=== PATIENT | male | born 2000 | race Caucasian/White ===

== ENCOUNTER 2021-01-24 07:27 | Day surgery (SDC) | payer OTHER ==
[~2021-01-24] VITALS: Ht 182.9 cm; Wt 82.5 kg
[2021-01-24 08:46] VITALS: BP 103/65; PULSE 69; TEMP 98.8
[2021-01-24] MEDS ORDERED: PROZAC 20MG20 MG PO (08:51)
[2021-01-24 09:55] VITALS: BP 99/62; PULSE 75; TEMP 97.6
--- NOTE | 2021-01-24 09:55 | NUR ---
Pt to [facility] via cart from ENDO. Pt awake and alert. Denies pain or nausea. Pt ambulates to recliner with stand by assist. Warm blanket provided. Muffin and water given per pt request. Call light within reach. Fiance in room.
[2021-01-24 10:10] VITALS: BP 92/65; PULSE 79
--- NOTE | 2021-01-24 10:10 | NUR ---
Pt continues to rest. Tolerating po food and fluids without nausea. Denies needs. Call light within reach.
[2021-01-24 10:25] VITALS: BP 100/63; PULSE 68
--- NOTE | 2021-01-24 10:25 | NUR ---
Discharge instructions reviewed. Pt voices understanding. IV site discontinued with all parts intact. Pt up to dress. Call light within reach.
--- NOTE | 2021-01-24 10:35 | NUR ---
Pt escorted to private car via wheel chair. Pt accompanied home by his fiance.
== END 2021-01-24 10:35 | disposition home or self-care (01) ==
LOC: SDCO 07:27
DX: K29.80 Duodenitis without bleeding (principal); K50.80 Crohn's disease of both small and large intestine without complications; K29.30 Chronic superficial gastritis without bleeding; K60.0 Acute anal fissure; K52.9 Noninfective gastroenteritis and colitis, unspecified; K22.10 Ulcer of esophagus without bleeding; F41.9 Anxiety disorder, unspecified; Z20.822 Contact with and (suspected) exposure to COVID-19; Z79.52 Long term (current) use of systemic steroids; Z79.899 Other long term (current) drug therapy
CPT/HCPCS: J2704; J7120

== ENCOUNTER 2021-04-19 14:52 | Outpatient (CLI) | payer OTHER ==
[~2021-04-19] VITALS: Ht 182.9 cm; Wt 85.2 kg
[~2021-04-19 14:52] MED LIST: PROZAC 20MG20 MG PO
[2021-04-19 16:24] LABS: HEMATOCRIT 41.3 % (42.0-52.0); MEAN CELL VOLUME 81 fl (80.0-100.0); MEAN CORPUSCULAR HEMOGLOBIN 26 pg (27.0-31.0); MEAN CORPUSCULAR HGB CONC 32 g/dl (33.0-37.0); MEAN PLATELET VOLUME 8.8 fl (7.4-10.4); PLATELET COUNT 297 K/mm3 (130-400); RED BLOOD COUNT 5.08 M/mm3 (4.20-5.60); REDCELL DISTRIBUTION WIDTH-CV 15.4 % (11.5-14.5)
[2021-04-19 16:30] VITALS: BP 104/63; PULSE 76; TEMP 98.8
[2021-04-19 16:30] LABS: ALBUMIN 3.9 gm/dL (3.5-5.0); BILIRUBIN,TOTAL 0.3 mg/dL (0.0-1.0); C-REACTIVE PROTEIN 3.3 mg/dL (0.0-0.9); CALCIUM 8.8 mg/dL (8.4-10.2); CREATININE, serum 0.78 (0.66-1.25); POTASSIUM 3.8 mmol/L (3.4-5.0); TOTAL PROTEIN 7.5 gm/dL (6.4-8.2)
[2021-04-19] MEDS ORDERED: REMICADE V100 MG/VIA IV (16:41)
[2021-04-19 17:00] VITALS: BP 117/69; PULSE 88; TEMP 98.8
[2021-04-19 17:30] VITALS: BP 99/55; PULSE 77; TEMP 98.8
[2021-04-19 18:00] VITALS: BP 89/47; PULSE 80; TEMP 98.8
[2021-04-19 18:36] VITALS: BP 92/56; PULSE 75; TEMP 98.8
== END 2021-04-19 18:36 | disposition home or self-care (01) ==
LOC: EUO 14:52
PROVIDERS: Internal Medicine Gastroenterology
DX: K50.80 Crohn's disease of both small and large intestine without complications (principal)
CPT/HCPCS: J1200; J1745; J7050

== ENCOUNTER 2021-06-26 13:48 | Outpatient (CLI) | payer OTHER ==
[~2021-06-26] VITALS: Ht 182.9 cm; Wt 90.3 kg
[2021-06-26] VITALS (7 sets, daily range): BP systolic 97–110; BP diastolic 51–71; PULSE 66–81; TEMP 98.1–98.5
[~2021-06-26 13:48] MED LIST changes: +REMICADE V100 MG/VIA IV
[2021-06-26 14:17] LABS: HEMATOCRIT 40.2 % (42.0-52.0); HEMOGLOBIN 13.4 g/dl (13.5-18.0); MEAN CELL VOLUME 83 fl (80.0-100.0); MEAN CORPUSCULAR HEMOGLOBIN 28 pg (27.0-31.0); MEAN CORPUSCULAR HGB CONC 33 g/dl (33.0-37.0); MEAN PLATELET VOLUME 9.6 fl (7.4-10.4); PLATELET COUNT 281 K/mm3 (130-400); RED BLOOD COUNT 4.87 M/mm3 (4.20-5.60); REDCELL DISTRIBUTION WIDTH-CV 14.7 % (11.5-14.5)
[2021-06-26 14:38] LABS: ALBUMIN 4.2 gm/dL (3.5-5.0); BILIRUBIN,TOTAL 0.6 mg/dL (0.2-1.2); CALCIUM 9.6 mg/dL (8.4-10.2); CREATININE, serum 0.95 mg/dL (0.72-1.25); POTASSIUM 3.5 mmol/L (3.5-4.5); TOTAL PROTEIN 7.6 gm/dL (6.2-8.1)
== END 2021-06-26 17:22 | disposition home or self-care (01) ==
LOC: EUO 13:48
PROVIDERS: Internal Medicine Gastroenterology
DX: K50.80 Crohn's disease of both small and large intestine without complications (principal)
CPT/HCPCS: J1200; J2930; J7050; Q5103

== ENCOUNTER 2021-08-28 13:52 | Outpatient (CLI) | payer OTHER ==
[~2021-08-28] VITALS: Ht 182.9 cm; Wt 96.1 kg
[2021-08-28 14:41] LABS: HEMATOCRIT 41.1 % (42.0-52.0); HEMOGLOBIN 14.1 g/dl (13.5-18.0); MEAN CELL VOLUME 82 fl (80.0-100.0); MEAN CORPUSCULAR HEMOGLOBIN 28 pg (27-31); MEAN CORPUSCULAR HGB CONC 34 g/dl (33.0-37.0); PLATELET COUNT 251 K/mm3 (130-400); REDCELL DISTRIBUTION WIDTH-CV 11.8 % (11.5-14.5)
[2021-08-28 15:06] LABS: ALBUMIN 4.3 gm/dL (3.5-5.0); BILIRUBIN,TOTAL 0.6 mg/dL (0.2-1.2); CALCIUM 9.2 mg/dL (8.4-10.2); CREATININE, serum 1.04 mg/dL (0.72-1.25); POTASSIUM 4.1 mmol/L (3.5-4.5); TOTAL PROTEIN 7.6 gm/dL (6.2-8.1)
[2021-08-28 15:33] VITALS: BP 109/68; PULSE 70; TEMP 98.4
[2021-08-28 15:47] VITALS: BP 98/63; PULSE 61
[2021-08-28 16:02] VITALS: BP 109/68; PULSE 66
[2021-08-28 16:30] VITALS: BP 106/70; PULSE 66
[2021-08-28 17:00] VITALS: BP 99/53; PULSE 77
[2021-08-28 17:18] VITALS: BP 102/52; PULSE 71; TEMP 98.2
== END 2021-08-28 19:45 | disposition home or self-care (01) ==
LOC: EUO 13:52
PROVIDERS: Internal Medicine Gastroenterology
DX: K50.80 Crohn's disease of both small and large intestine without complications (principal)
CPT/HCPCS: J1200; J2920; J7050; Q5103

== ENCOUNTER 2021-10-23 13:51 | Outpatient (CLI) | payer OTHER ==
[~2021-10-23] VITALS: Ht 182.9 cm; Wt 94.1 kg
[2021-10-23 14:20] LABS: BASO % 0.3 % (0.0-2.0); EOS # 0.1 K/mm3 (0.0-0.7); EOS % 0.6 % (0.0-4.0); GRAN # 5.4 K/mm3 (1.4-6.5); GRAN % 69.2 % (42.2-75.2); HEMATOCRIT 40.6 % (42.0-52.0); HEMOGLOBIN 14.1 g/dl (13.5-18.0); LYMPH # 1.7 K/mm3 (1.2-3.4); MEAN CELL VOLUME 82 fl (80.0-100.0); MEAN CORPUSCULAR HEMOGLOBIN 29 pg (27-31); MEAN CORPUSCULAR HGB CONC 35 g/dl (33.0-37.0); MONO # 0.6 K/mm3 (0.1-0.6); MONO % 7.6 % (1.7-9.3); PLATELET COUNT 268 K/mm3 (130-400); RED BLOOD COUNT 4.93 M/mm3 (4.20-5.60); REDCELL DISTRIBUTION WIDTH-CV 12.1 % (11.5-14.5)
[2021-10-23 14:43] LABS: ALBUMIN 4.5 gm/dL (3.5-5.0); BILIRUBIN,TOTAL 0.6 mg/dL (0.2-1.2); CALCIUM 9.3 mg/dL (8.4-10.2); CREATININE, serum 0.87 mg/dL (0.72-1.25); POTASSIUM 3.3 mmol/L (3.5-4.5); TOTAL PROTEIN 7.7 gm/dL (6.2-8.1)
[2021-10-23 14:45] VITALS: BP 103/65; PULSE 89; TEMP 98.8
[2021-10-23 15:15] VITALS: BP 96/57; PULSE 69
[2021-10-23 15:45] VITALS: BP 104/65; PULSE 69; TEMP 98.7
[2021-10-23 16:15] VITALS: BP 103/66; PULSE 79
[2021-10-23 16:45] VITALS: BP 98/63; PULSE 78
== END 2021-10-23 17:16 ==
LOC: EUO 13:51
PROVIDERS: Internal Medicine Gastroenterology
DX: K50.80 Crohn's disease of both small and large intestine without complications (principal)
CPT/HCPCS: J1200; J2920; J7050; Q5103

== ENCOUNTER 2021-12-26 13:49 | Outpatient (CLI) | payer OTHER ==
[~2021-12-26] VITALS: Ht 182.9 cm; Wt 93.8 kg
[2021-12-26 14:16] LABS: HEMATOCRIT 39.4 % (42.0-52.0); HEMOGLOBIN 13.4 g/dl (13.5-18.0); MEAN CELL VOLUME 84 fl (80.0-100.0); MEAN CORPUSCULAR HEMOGLOBIN 29 pg (27-31); MEAN CORPUSCULAR HGB CONC 34 g/dl (33.0-37.0); MEAN PLATELET VOLUME 9.7 fl (7.4-10.4); PLATELET COUNT 340 K/mm3 (130-400); RED BLOOD COUNT 4.68 M/mm3 (4.20-5.60); REDCELL DISTRIBUTION WIDTH-CV 12.5 % (11.5-14.5)
[2021-12-26 14:26] VITALS: BP 109/66; PULSE 88; TEMP 98.7
[2021-12-26 14:35] LABS: ALBUMIN 4.1 gm/dL (3.5-5.0); BILIRUBIN,TOTAL 0.5 mg/dL (0.2-1.2); CREATININE, serum 0.94 mg/dL (0.72-1.25); POTASSIUM 3.4 mmol/L (3.5-4.5); TOTAL PROTEIN 7.5 gm/dL (6.2-8.1)
[2021-12-26 16:15] VITALS: BP 96/62; PULSE 64
[2021-12-26 16:45] VITALS: BP 94/61; PULSE 70
[2021-12-26 17:15] VITALS: BP 94/57; PULSE 70
[2021-12-26 17:45] VITALS: BP 97/63; PULSE 73
== END 2021-12-26 17:50 | disposition still patient (30) ==
LOC: EUO 13:49
PROVIDERS: Internal Medicine Gastroenterology
DX: K50.80 Crohn's disease of both small and large intestine without complications (principal)
CPT/HCPCS: J1200; J1745; J2920; J7050

== ENCOUNTER 2022-01-28 23:12 | Emergency (ER) | payer OTHER ==
[~2022-01-28] VITALS: Ht 182.9 cm; Wt 90.9 kg
[2022-01-28 23:23] VITALS: TEMP 98.5
[2022-01-28 23:51] LABS: COLLECTION METHOD CLEAN CATCH
[2022-01-28 23:59] LABS: MUCOUS Present (NOT PRESENT); PH 6 (5-8); SQUAMOUS EPITHELIAL 0-2 /hpf (0-10); URINE APPEARANCE Hazy (CLEAR/HAZY); URINE BACTERIA None Seen /hpf (NONE SEEN); URINE BILIRUBIN Negative (NEGATIVE); URINE BLOOD Negative (NEGATIVE); URINE COLOR Amber (YELLOW); URINE GLUCOSE Negative (NEGATIVE); URINE KETONE 1+ (NEGATIVE); URINE LEUKOCYTE ESTERASE Negative (NEGATIVE); URINE NITRATE Negative (NEGATIVE); URINE PROTEIN(semi-quant) 1+ (NEGATIVE); URINE UROBILINOGEN Negative (NEGATIVE)
[2022-01-29 00:09] LABS: BASO # 0.1 K/mm3 (0.0-0.2); BASO % 0.4 % (0.0-2.0); EOS % 0.1 % (0.0-4.0); GRAN # 12.2 K/mm3 (1.4-6.5); GRAN % 80.4 % (42.2-75.2); HEMOGLOBIN 14.5 g/dl (13.5-18.0); LYMPH # 1.8 K/mm3 (1.2-3.4); LYMPH % 11.7 % (20.0-51.0); MEAN CELL VOLUME 82 fl (80.0-100.0); MEAN CORPUSCULAR HEMOGLOBIN 28 pg (27-31); MEAN CORPUSCULAR HGB CONC 35 g/dl (33.0-37.0); MEAN PLATELET VOLUME 9.8 fl (7.4-10.4); MONO % 6.8 % (1.7-9.3); PLATELET COUNT 445 K/mm3 (130-400); RED BLOOD COUNT 5.13 M/mm3 (4.20-5.60); REDCELL DISTRIBUTION WIDTH-CV 11.9 % (11.5-14.5)
[2022-01-29 00:10] LABS: ALBUMIN 4.2 gm/dL (3.5-5.0); BILIRUBIN,TOTAL 0.6 mg/dL (0.2-1.2); CALCIUM 9.9 mg/dL (8.4-10.2); CREATININE, serum 1.11 mg/dL (0.72-1.25); TOTAL PROTEIN 8.6 gm/dL (6.2-8.1)
[2022-01-29] MEDS ORDERED: REGLAN 10MG10 MG/TAB PO (01:44)
[2022-01-29 02:03] VITALS: BP 120/68; PULSE 64
== END 2022-01-29 02:03 | disposition home or self-care (01) ==
LOC: COL.ER 23:12
PROVIDERS: Emergency Medicine
DX: K52.9 Noninfective gastroenteritis and colitis, unspecified (principal); E87.6 Hypokalemia
CPT/HCPCS: J2270; J2765; J7030; Q9967

== ENCOUNTER 2022-02-13 14:01 | Outpatient (CLI) | payer OTHER ==
[~2022-02-13] VITALS: Ht 182.9 cm; Wt 91.4 kg
[~2022-02-13 14:01] MED LIST changes: +REGLAN 10MG10 MG/TAB PO
[2022-02-13 14:52] LABS: BASO % 0.5 % (0.0-2.0); EOS # 0.2 K/mm3 (0.0-0.7); EOS % 1.9 % (0.0-4.0); GRAN # 5.9 K/mm3 (1.4-6.5); GRAN % 66.9 % (42.2-75.2); HEMATOCRIT 42.6 % (42.0-52.0); HEMOGLOBIN 14.1 g/dl (13.5-18.0); MEAN CELL VOLUME 84 fl (80.0-100.0); MEAN CORPUSCULAR HEMOGLOBIN 28 pg (27-31); MEAN CORPUSCULAR HGB CONC 33 g/dl (33.0-37.0); MEAN PLATELET VOLUME 9.3 fl (7.4-10.4); MONO # 0.7 K/mm3 (0.1-0.6); MONO % 7.5 % (1.7-9.3); PLATELET COUNT 370 K/mm3 (130-400); RED BLOOD COUNT 5.07 M/mm3 (4.20-5.60); REDCELL DISTRIBUTION WIDTH-CV 12.3 % (11.5-14.5)
[2022-02-13 14:55] VITALS: BP 99/59; PULSE 77; TEMP 98.8
[2022-02-13 15:08] LABS: ALBUMIN 4.1 gm/dL (3.5-5.0); BILIRUBIN,TOTAL 0.4 mg/dL (0.2-1.2); CREATININE, serum 0.91 mg/dL (0.72-1.25); POTASSIUM 3.7 mmol/L (3.5-4.5); TOTAL PROTEIN 8.5 gm/dL (6.2-8.1)
[2022-02-13 16:05] VITALS: BP 101/57; PULSE 80; TEMP 98.8
[2022-02-13 16:30] VITALS: BP 98/50; PULSE 69
[2022-02-13 17:00] VITALS: BP 106/48; PULSE 71
[2022-02-13 17:30] VITALS: BP 102/51; PULSE 79
[2022-02-13 18:00] VITALS: BP 104/48; PULSE 100; TEMP 98.4
== END 2022-02-13 18:19 | disposition home or self-care (01) ==
LOC: EUO 14:01
PROVIDERS: Internal Medicine Gastroenterology
DX: K50.80 Crohn's disease of both small and large intestine without complications (principal)
CPT/HCPCS: J1200; J1745; J2920; J7050

== ENCOUNTER 2022-04-10 13:40 | Outpatient (CLI) | payer OTHER ==
[~2022-04-10] VITALS: Ht 182.9 cm; Wt 89.2 kg
[2022-04-10 14:12] LABS: HEMATOCRIT 40.8 % (42.0-52.0); HEMOGLOBIN 13.7 g/dl (13.5-18.0); MEAN CELL VOLUME 82 fl (80.0-100.0); MEAN CORPUSCULAR HEMOGLOBIN 28 pg (27-31); MEAN CORPUSCULAR HGB CONC 34 g/dl (33.0-37.0); MEAN PLATELET VOLUME 8.9 fl (7.4-10.4); PLATELET COUNT 368 K/mm3 (130-400); RED BLOOD COUNT 4.96 M/mm3 (4.20-5.60); REDCELL DISTRIBUTION WIDTH-CV 13.1 % (11.5-14.5)
[2022-04-10 14:31] LABS: ALBUMIN 3.6 gm/dL (3.5-5.0); BILIRUBIN,TOTAL 0.4 mg/dL (0.2-1.2); CALCIUM 9.4 mg/dL (8.4-10.2); CREATININE, serum 0.76 mg/dL (0.72-1.25); TOTAL PROTEIN 7.3 gm/dL (6.2-8.1)
[2022-04-10 14:44] LABS: LYMPHOCYTE 7 % (20.0-51.0); NEUTROPHILS 90 % (42.0-75.2); PLATELET ESTIMATE NORMAL (NORMAL)
[2022-04-10 15:19] VITALS: BP 110/69; PULSE 60; TEMP 98
[2022-04-10 15:40] VITALS: BP 126/64; PULSE 66
[2022-04-10 15:43] VITALS: BP 126/64; PULSE 66; TEMP 98
[2022-04-10 15:50] VITALS: BP 110/59; PULSE 62
[2022-04-10 16:10] VITALS: BP 110/70; PULSE 65
[2022-04-10] MEDS ORDERED: PRIL40 PO (18:37)
[2022-04-10] MEDS ORDERED: PREDNISONE10 MG PO (18:38)
--- NOTE | 2022-04-24 14:34 | NUR ---
Pt reports to this nurse that he is moving back to [place] and will continue infusions there.Requested for pt to have office notify us.
== END 2022-04-10 18:40 | disposition home or self-care (01) ==
LOC: EUO 13:40
PROVIDERS: Internal Medicine Gastroenterology
DX: K50.80 Crohn's disease of both small and large intestine without complications (principal)
CPT/HCPCS: J1200; J7050; Q5103